=== PATIENT | female | born 1980 | race Caucasian/White ===

== ENCOUNTER → 2023-05-09 | Outpatient (CLI) | payer OTHER ==
--- NOTE | 2023-05-09 10:22 | XR ---
EXAMINATION TYPE: XR chest 2V DATE OF EXAM: 05/09/2023 COMPARISON: NONE TECHNIQUE: PA and lateral views submitted. HISTORY: Abnormal labs FINDINGS: The lungs are clear and there is no pneumothorax, pleural effusion, or focal pneumonia. Heart size normal and no overt failure. Osseous structures demonstrate hypertrophic and degenerative changes of the spine. Biapical pleural thickening. Hyperinflation correlate for COPD. IMPRESSION: 1. No acute process.
== END | disposition home or self-care (01) ==
LOC: RADXRMAIN 09:20
PROVIDERS: ATTEND Internal Medicine Hematology & Oncology
DX: D45 Polycythemia vera (principal); F41.8 Other specified anxiety disorders; R79.9 Abnormal finding of blood chemistry, unspecified
CPT/HCPCS: 71046

== ENCOUNTER 2024-04-14 08:21 | Day surgery (SDC) | payer OTHER ==
[2024-04-08 11:40] VITALS: BMI 32.3
[~2024-04-14 08:21] MED LIST: HYDROmorphone 0.5 MG/0.5 ML SYRINGE IVP PRN; LIDOCAINE 1% (10MG/ML) FOR IV START INTRADERMA PRN; MIDAZOLAM 2 MG/2 ML VIAL IV PRN; fentaNYL (PF) 50 MCG/ML 2 ML AMP IVP PRN
[2024-04-14 08:51] VITALS: TEMP 97.1
[2024-04-14] MEDS: DEXAMETHASONE SOD PHOSPHATE 4 MG/ML 1 ML VIAL IV ONE (09:08)
[2024-04-14] MEDS: ONDANSETRON 4 MG/2 ML VIAL IVP ONE (09:08)
[2024-04-14] MEDS: LACTATED RINGERS 1,000 ML IV SCH (09:10)
[2024-04-14] MEDS: FAMOTIDINE 20 MG/2 ML VIAL IV PRN (09:11)
[2024-04-14] MEDS: IV FLUID CONTINUATION 1,000 ML IV ONE (09:13)
[2024-04-14] MEDS ORDERED: MIDAZOLAM 2 MG/2 ML VIAL ONE (09:30)
[2024-04-14] MEDS ORDERED: KETAMINE HCL IN 0.9 % NACL 50 MG/5 ML SYRINGE ONE (09:30)
[2024-04-14] MEDS ORDERED: PROPOFOL 10 MG/ML 20 ML VIAL IV ONE (09:30)
[2024-04-14] MEDS: LIDOCAINE 1%-EPI 1:100,000 20 ML VIAL SQ ONE (09:45)
--- NOTE | 2024-04-14 10:09 | P.OP ---
Date of Procedure: 04/14/24 Preoperative Diagnosis: right anterior neck skin lesion Postoperative Diagnosis: same Procedure(s) Performed: excision right anterior neck skin lesioncomplex closure 5.2 cm Anesthesia: MAC Surgeon: Dominic Hawthorne Estimated Blood Loss (ml): 3 Pathology: other (right anterior neck skin lesion) Condition: stable Disposition: PACU Indications for Procedure: is a 43-year-old white female with a persistent right anterior neck skin lesion. This has had intermittent infection and appears most consistent with a ruptured sebaceous cyst Operative Findings: right anterior neck skin lesion which is nodular firm has subcutaneous white hue-also with some surrounding scarring-the scarring was deep into the subcutaneous tissue and even involved the platysma layer Description of Procedure: the patient brought in the operative suite and placed in a supine position. The patient underwent induction of the sedation after appropriate monitors were placed by the solar hot water installer. The patient was prepped and draped in usual aseptic fashion. 1% lidocaine with 1-100,000 epinephrine was infused subcutaneously and field block fashion. This was left to work for 7 minutes for vasoconstrictive effect. An elliptical incision was then fashioned around the lesion including the overlying skin and was excised down into subcutaneous tissue and in the midportion of the wound even included a small portion approximate 1.5 cm of the platysma layer. This was excised then grossly entirely. Hemostasis was gained with electrocautery. This required complex closure due to the depth and size of the wound. Extensive undermining was performed and rotation of tissue into the wound was performed. The platysma layer was closed with inverted interrupted 4- 0 Vicryl suture. The deep and superficial subcutaneous layers were closed with inverted interrupted 5-0 Vicryl sutureand skin closed with running locking 5-0 Prolene suture. Bacitracin ointment and sterile dressing were placed. The patient was then transferred to the postop recovery area in satisfactory condition.
[2024-04-14 11:01] VITALS: BP 121/80; PULSE 87; RESP 16
== END 2024-04-14 11:14 | disposition home or self-care (01) ==
LOC: OR 08:21
PROVIDERS: ATTEND Otolaryngology
CPT/HCPCS: 88304